=== PATIENT | female | born 1975 | race Caucasian/White ===

== ENCOUNTER 2018-11-04 06:40 | Emergency (ER) | payer BC ==
--- NOTE | 2018-11-04 07:32 | ED ---
Abdominal Pain/Female - HPI Summary HPI Summary: This patient is a 43 year old F presenting to [facility] with a chief complaint of RUQ abd pain since 8 days ago. The patient notes that her pain worsened last night but notes that it lessened [employer] at [facility]. The patient rates the pain 3/10 in severity. Symptoms aggravated by nothing. Symptoms alleviated by nothing. Patient reports multiple episodes of emesis since 1 day ago. - History of Current Complaint Chief Complaint: EDAbdPain Stated Complaint: ABD PAIN Time Seen by Provider: 11/04/18 07:05 Hx Obtained From: Patient Hx Last Menstrual Period: 10/15/12 Onset/Duration: Gradual Onset, Lasting Days - 8 days, Still Present Timing: Constant Severity Initially: Moderate Severity Currently: Mild Pain Intensity: 3 Pain Scale Used: 0-10 Numeric Location: Discrete At: RUQ Radiates: No Aggravating Factor(s): Nothing Alleviating Factor(s): Nothing Associated Signs and Symptoms: Positive: Vomiting Allergies/Adverse Reactions: Allergies Allergy/AdvReac Type Severity Reaction Status Date / Time doxycycline Allergy Mild Vomiting Verified 11/04/18 11:42 PMH/Surg Hx/FS Hx/Imm Hx Endocrine/Hematology History: Reports: Hx Thyroid Disease Denies: Hx Diabetes Cardiovascular History: Denies: Hx Congestive Heart Failure, Hx Hypercholesterolemia, Hx Hypertension GI History: Reports: Other GI Disorders - llq pain - Cancer History Hx Chemotherapy: No Hx Radiation Therapy: Yes - THYROID, 1999 RAD ABLATION - Surgical History Surgery Procedure, Year, and Place: 2 c section, ectopic preg Infectious Disease History: No Infectious Disease History: Denies: Traveled Outside the [place] in Last 30 Days - Family History Known Family History: Negative: Diabetes - Social History Alcohol Use: Occasionally Substance Use Type: Reports: None Smoking Status (MU): Never Smoked Tobacco Review of Systems Negative: Fever Negative: Epistaxis Negative: Cough Positive: Abdominal Pain - RUQ, Vomiting Negative: Headache All Other Systems Reviewed And Are Negative: Yes Physical Exam - Summary Physical Exam Summary: Appearance: The patient is obese in no acute distress and in no acute pain. Skin: The skin is warm and dry and skin color reflects adequate perfusion. HEENT: The head is normocephalic and atraumatic. The pupils are equal and reactive. The conjunctivae are clear and without drainage. Nares are patent and without drainage. Mouth reveals moist mucous membranes and the throat is without erythema and exudate. The external ears are intact. The ear canals are patent and without drainage. The tympanic membranes are intact. Neck: The neck is supple with full range of motion and non-tender. There are no carotid bruits. There is no neck vein distension. Respiratory: Chest is non-tender. Lungs are clear to auscultation and breath sounds are symmetrical and equal. Cardiovascular: Heart is regular rate and rhythm. There is no murmur or rub auscultated. There is no peripheral edema and pulses are symmetrical and equal. Abdomen: The abdomen is soft and non-tender. There are normal bowel sounds heard in all four quadrants and there is no organomegaly palpated. Musculoskeletal: There is no back tenderness noted. Extremities are non-tender with full range of motion. There is good capillary refill. There is no peripheral edema or calf tenderness elicited. Neurological: Patient is alert and oriented to person, place and time. The patient has symmetrical motor strength in all four extremities. Cranial nerves are grossly intact. Deep tendon reflexes are symmetrical and equal in all four extremities. Psychiatric: The patient has an appropriate affect and does not exhibit any anxiety or depression. Triage Information Reviewed: Yes Vital Signs On Initial Exam: Initial Vitals Temp Pulse Resp BP Pulse Ox 97 F 85 20 124/86 97 11/04/18 06:42 11/04/18 06:42 11/04/18 06:42 11/04/18 06:42 11/04/18 06:42 Vital Signs Reviewed: Yes Diagnostics - Vital Signs Vital Signs Temp Pulse Resp BP Pulse Ox 11/04/18 06:42 97 F 85 20 124/86 97 - Laboratory Result Diagrams: 11/04/18 08:03 11/04/18 08:03 Lab Statement: Any lab studies that have been ordered have been reviewed, and results considered in the medical decision making process. - CT CT Abd/Pelvis Summary of CT Findings: IMPRESSION: 1. NO RENAL CALCULI OR HYDRONEPHROSIS. 2. LARGE CYST ARISING FROM THE LEFT OVARY SLIGHTLY INCREASED IN SIZE FROM THE PRIOR STUDY. VERSUS A NEW CYST. RECOMMEND A FOLLOW-UP OUTPATIENT PELVIC ULTRASOUND FOR FURTHER. EVALUATION. Dr. Wise has reviewed this report. - Additional Comments Diagnostic Additional Comments: Liver US Interpreted by radiologist. IMPRESSION: 1. CHOLELITHIASIS WITHOUT EVIDENCE FOR ACUTE CHOLECYSTITIS. 2. FINDINGS SUGGESTIVE OF FATTY INFILTRATION OF THE LIVER. Dr. Wise has reviewed this report. Abdominal Pain Fem Course/Dx - Course Course Of Treatment: Ms. Renee reports that for the last 8 nights she has had epigastric/right upper quadrant pain that lasted several hours and resolved on its own. Last night was the worst episode was accompanied by nausea and vomiting. She came to the emergency department was very busy and she left and went home and said she would come back in the morning. This morning she is feeling improved. She was nontoxic in appearance with stable vital signs on arrival. A gallbladder ultrasound revealed stones and fatty liver but no sign of acute cholecystitis. Labs were obtained and showed no leukocytosis but she did have some mild elevations of her transaminases and her lipase. A CT scan was obtained and was unremarkable. My working diagnosis is that she may have passed a gallstone. I think she will need to have repeat blood work done and a couple of days to make sure that her transaminases and lipase are going down. I don't think her fatty liver is extensive enough to be leading to cirrhotic changes at this point. I recommended that she follow up with her PCP next week for for further evaluation. She was unable to get a timely appointment and therefore referred her to Dr. Mcelroy as she may need to have her gallbladder out. I recommended she return to the emergency department if her pain should return tonight. - Diagnoses Provider Diagnoses: Fatty liver, Biliary colic Discharge - Sign-Out/Discharge Documenting (check all that apply): Patient Departure - discharge home Patient Received Moderate/Deep Sedation with Procedure: No - Discharge Plan Condition: Stable Disposition: HOME Patient Education Materials: Biliary Colic (ED), Non-Alcoholic Fatty Liver Disease (ED) Referrals: Cristopher Javed MD [Primary Care Provider] - 2 Days Additional Instructions: Follow up with Dr. Javed in 2 days. Return to the emergency department if the pain returns or worsens. - Billing Disposition and Condition Condition: STABLE Disposition: Home - Attestation Statements Document Initiated by Scribe: Yes Documenting Scribe: Lyn Hewitt Provider For Whom Scribe is Documenting (Include Credential): Rob Wise MD Scribe Attestation: ILyn, scribed for Rob Wise MD on 11/04/18 at 1504. Scribe Documentation Reviewed: Yes Provider Attestation: The documentation as recorded by the scribe, Lyn Hewitt accurately reflects the service I personally performed and the decisions made by me, Rob Wise MD Status of Lupe Document: Viewed
[2018-11-04 08:16] LABS: ABS Basophils 0 10^3/ul (0-0.2); ABS Eosinophils 0.1 10^3/ul (0-0.6); ABS Lymphocytes 1.6 10^3/ul (1.0-4.8); ABS Monocytes 0.6 10^3/ul (0-0.8); ABS Neutrophils 5.5 10^3/ul (1.5-7.7); ABS Nucleated RBC 0 10^3/ul; Eosinophil % 1.4 %; Hematocrit 37 % (35-47); Hemoglobin 12.6 g/dl (12.0-16.0); Lymphocyte % 20.9 %; Mean Corpuscular HGB Conc 34 g/dl (31-36); Mean Corpuscular Hemoglobin 30 pg (27-31); Mean Corpuscular Volume 89 fL (80-97); Nucleated Red Blood Cells % 0; Platelet Count 284 10^3/ul (150-450); Red Blood Count 4.19 10^6/ul (4.00-5.40); Red Cell Distribution Width 13 % (10.5-15); White Blood Count 7.9 10^3/ul (3.5-10.8)
[2018-11-04 08:33] LABS: Albumin 3.8 g/dL (3.2-5.2); Albumin/Globulin Ratio 1.5 (1-3); BUN/Creatinine Ratio 15.5 (8-20); C Reactive Protein 2.86 mg/L (<8.01); Calcium 9.2 mg/dL (8.6-10.3); EGFR African American 108.2 (>60); EGFR Non-African American 89.4 (>60); Globulin 2.5 g/dL (2-4); Potassium 3.9 mmol/L (3.5-5.0); Total Bilirubin 0.6 mg/dL (0.2-1.0); Total Protein 6.3 g/dL (6.4-8.9)
[2018-11-04 11:42] VITALS: BP 130/89
== END 2018-11-04 11:49 | disposition home or self-care (01) ==
LOC: ED 06:40
DX: K76.0 Fatty (change of) liver, not elsewhere classified (principal); K80.50 Calculus of bile duct without cholangitis or cholecystitis without obstruction; E07.9 Disorder of thyroid, unspecified
CPT/HCPCS: 36415; 74176; 76705; 80053; 83690; 85025; 86140; 99283

== ENCOUNTER → 2018-11-10 07:28 | Day surgery (SDC) | payer BC ==
[~2018-11-10 07:28] MED LIST: Acetaminophen TAB* 325 MG PO PRN; Buffered Lidocaine 1% SYRIN* 1 ML/SYRINGE INTRADERM ONE; Bupivacaine 0.25% W/EPI* 10 ML SDV ONE; Dexamethasone IV* 4 MG/ML 1 ML (4 MG) ONE; DiMENhydriNATE IV* 50 MG/ML VIAL IV PUSH PRN; HYDROcodone/ACETAMIN 5-325 MG* 1 TAB ONE; HYDROcodone/ACETAMIN 5-325 MG* 1 TAB PO ONE; HYDROmorphone INJ1* 1 MG/ML SYRINGE IV PRN; HYDROmorphone INJ1* 1 MG/ML SYRINGE ONE; Ketorolac INJ* 30 MG/ML 1 ML VIAL ONE; Lactated Ringers 1000 ML Bag* 1,000 ML IV SCH; Lidocaine 2% PF * 5 ML VIAL ONE; Metoclopramide IV* 5 MG/ML 2 ML VIAL ONE; Midazolam* 1 MG/ML 2 ML VIAL (2 MG) ONE; Naloxone* 0.4 MG/ML 1 ML VIAL IV PRN; Ondansetron INJ* 2 MG/ML VIAL ONE; Propofol* 10 MG/ML 20 ML BTL ONE; Rocuronium* 10 MG/ML VIAL ONE; Scopolamine 1.5 mg* PATCH ONE; Sugammadex * 200 MG/2 ML VIAL IV PUSH ONE; ceFAZolin 2 GM PREMIX in ORs 2 GM/50 ML BAG IVPB ONE; fentaNYL* 50 MCG/ML 2 ML VIAL (100 MCG VIAL) ONE; oxyCODONE TAB* 5 MG TAB PO PRN
--- NOTE | 2018-11-10 12:12 | OP ---
CC: Cristopher Javed MD * DATE OF OPERATION: 11/10/18 - [facility] DATE OF : 73 SURGEON: Dr. Mcelroy. MUD MIXER OPERATOR: Elisabeth Mccurdy NP. ANESTHESIOLOGIST: Domonique Rutledge DO. ANESTHESIA: General endotracheal anesthesia. PRE-OP DIAGNOSIS: Gallstone pancreatitis. POST-OP DIAGNOSIS: Gallstone, pancreatitis. OPERATIVE PROCEDURE: Laparoscopic cholecystectomy. ESTIMATED BLOOD LOSS: Minimal. IV FLUIDS: Crystalloid. SPECIMENS: Gallbladder. DRAINS: None. COMPLICATIONS: None. COUNTS: The instruments, needle and sponge counts were correct. DESCRIPTION OF PROCEDURE: The patient was brought to the operating room and placed on the table supine. Sequential compression devices were placed on both lower extremities. General anesthesia was administered. She was positioned and padded appropriately. She was prepped and draped in the usual sterile fashion and received appropriate intravenous antibiotics. Local anesthetic was infiltrated into the skin and soft tissue prior to each incision. Entry to the abdomen was made through an infraumbilical vertical incision using open technique. After accessing the peritoneal cavity, carbon dioxide was insufflated to a pressure of 15 mmHg. Under direct visualization, three 5 mm trocars were placed, two in the right upper quadrant, one in the subxiphoid position. The gallbladder was identified. It had no acute inflammatory changes. There were some adhesions, both to the duodenum and omentum that were sharply lysed. The peritoneum investing the gallbladder was then incised using sharp dissection and cautery, dissecting both on the medial and lateral aspects of the gallbladder. The triangle of Calot was developed and a critical view was obtained. The cystic duct and anterior and posterior branches of the cystic artery were each dissected out, doubly clipped, and divided and then the gallbladder was freed from attachments to the liver using the cautery and sharp dissection staying in an avascular plane. Once the gallbladder was freed, it was placed into an endoscopic retrieval bag and retrieved through the umbilical site. Hemostasis was assured. Ports removed under direct visualization. Carbon dioxide was released. The umbilical wound was closed with 0-Vicryl in an interrupted fashion to approximate the fascia. The skin incisions were closed with 4-0 Monocryl in subcuticular fashion. Steri -Strips were applied. The patient tolerated the procedure well, was extubated and transferred to recovery in stable condition. [id number]/[facility] #: [id number] [facility]
[2018-11-10 12:53] VITALS: BP 106/58
== END | disposition home or self-care (01) ==
LOC: OR 07:28
PROVIDERS: ATTEND Surgery
DX: K80.10 Calculus of gallbladder with chronic cholecystitis without obstruction (principal); K85.10 Biliary acute pancreatitis without necrosis or infection; E07.9 Disorder of thyroid, unspecified; Z87.891 Personal history of nicotine dependence
CPT/HCPCS: 81025; 88304; A9270-GY; J0690; J1100; J1170; J1885; J2250; J2405; J2704; J2765; J3010

== ENCOUNTER 2018-12-02 07:00 | Emergency (ER) | payer BC ==
--- NOTE | 2018-12-02 07:17 | UC ---
Respiratory Complaint HPI - HPI Summary HPI Summary: Patient Chief Complaint: COUGH FOR APPROXIMATELY 5 WEEKS Course (aggravating, relieving, current condition, severity): 43-year-old complains of intermittent, spasmodic episodes of coughing. She was seen on November 28 and started on an inhaler and a spacer. She was given 1 dose of prednisone. Over the last 5 days. The cough is increased. The pain is 5/10 with the cough. The discomfort is anterior thorax. There is no pain consistent with cardiac problem. Note is made of an elevated pulse of 101 and a blood pressure of 135/77. The patient is not on any antihypertensive medications. She is afebrile and her pulse ox is 98. MD note, vital signs stable. Nurses Note Reviewed: Pt c/o cold-sx for 3 weeks - chest congestion,. Wheezing , cough. Saw pcp on 11/28 - was given some prednisone and levalbuterol - states ddin't help. Visit History Reviewed. Positive for hypothyroidism. 6 weeks ago approximately. Patient had her gallbladder taken out. She did have pancreatitis before that. She does report 2 episodes of "asthmatic bronchitis" , the last episode in 2007. Medications & Allergies Reviewed. No medications for hypertension. - History of Current Complaint Stated Complaint: COUGH Time Seen by Provider: 12/02/18 07:11 Hx Obtained From: Patient Hx Last Menstrual Period: 10/15/12 - Allergies/Home Medications Allergies/Adverse Reactions: Allergies Allergy/AdvReac Type Severity Reaction Status Date / Time doxycycline Allergy Mild Vomiting Verified 12/02/18 07:11 Home Medications: Home Medications Amoxicillin 1,000 mg PO ONCE 12/02/18 [History Confirmed 12/02/18] Norethindrone (NF) [Mitzy (NF)] 0.35 mg PO DAILY 12/02/18 [History Confirmed 12/02/18] PMH/Surg Hx/FS Hx/Imm Hx - Additional Past Medical History Additional PMH: PMH reviewed. Family History: Positive history of: sleep apnea -Denies hypertension, heart disease, stroke, diabetes, cancer. SOCIAL HISTORY: Employment: endoscopy nurse Family Environment: lives with two children and Habits: non smoker Previously Healthy: Yes - Surgical History Surgical History: Yes Surgery Procedure, Year, and Place: 2 c section,. ectopic preg, 2010, salpingectomy. thyroid ablation - Family History Known Family History: Negative: Diabetes - Social History Alcohol Use: Occasionally Alcohol Amount: 2 drinks 2x per month Substance Use Type: None Smoking Status (MU): Never Smoked Tobacco Amount Used/How Often: [id number] Review of Systems All Other Systems Reviewed And Are Negative: Yes Respiratory: Positive: Shortness Of Breath, Cough Cardiovascular: Positive: Negative Gastrointestinal: Positive: Negative Genitourinary: Positive: Negative Is Patient Immunocompromised?: No - Comments Additional Review of Systems Comments: A 12 point review of systems was completed and was significantly positive for: cough . The remainder of the review was negative except as stated above in the ROS or HPI. Physical Exam - Summary Physical Exam Summary: Appearance: The patient is well-appearing, is in no pain or distress, and is well-nourished. Eyes: Conjunctiva are clear. Pupils are equal and reactive to light and accommodation. Extra ocular muscle movement is intact. ENT: The hearing is grossly normal, the pharynx is normal, and the TMs are normal. There is no muffled or hoarse voice. No stridor. Neck: The neck is supple and there is no lymphadenopathy. Respiratory: The chest is nontender to palpation and without crepitus. EXAMINATION OF THE LUNGS SHOW DIFFUSE RHONCHI AND WHEEZES WITH AN EXTENDED EXPIRATORY PHASE. After a inhalation treatment. Patient is breathing more easily and there are decreased wheezes. Cardiovascular: Heart sounds reveal a regular rate and rhythm. There are no clicks, rubs or murmurs. There are no carotid bruits or thrills. Circulation is grossly intact. Abdomen: The abdomen is soft and nontender. There is no organomegaly. Bowel sounds are present and within normal limits. No point tenderness at McBurneys point. Musculoskeletal: Strength is intact. The patient moves all extremities. Neurological: The patient is alert. Motor and sensory are examination grossly intact. Speech is normal. Psychological: The patient displays age appropriate behavior Skin: Negative for rashes. Triage Information Reviewed: Yes Respiratory Course/Dx - Course Course Of Treatment: 43-year-old complains of intermittent, spasmodic episodes of coughing. She was seen on November 28 and started on an inhaler and a spacer. She was given 1 dose of prednisone. Over the last 5 days. The cough is increased. The pain is 5/10 with the cough. The discomfort is anterior thorax. There is no pain consistent with cardiac problem. Physical examination shows diffuse wheezes and rhonchi. She was given an DuoNeb treatment. Her condition improved. My diagnosis is bronchitis with bronchospasm. She will be started on prednisone, Zithromax and albuterol inhaler and spacer. She also has an inhalation device at home that she will use. She will be followed up if there is any development of chest pain, or increasing shortness of breath. Chest x-ray was negative for pneumonia. - Differential Dx/Diagnosis Differential Diagnosis/HQI/PQRI: Asthma, Bronchitis, CHF, Pulmonary Embolism Provider Diagnosis: Bronchospasm with bronchitis, acute Discharge - Sign-Out/Discharge Documenting (check all that apply): Patient Departure All imaging exams completed and their final reports reviewed: Yes - Discharge Plan Condition: Stable Disposition: HOME Prescriptions: Albuterol HFA INHALER* [Ventolin HFA Inhaler*] 1 - 2 puff INH Q4H #1 mdi MDD 8 PUFFS A DAY Azithromycin TAB* [Zithromax TAB*] 250 mg PO DAILY #6 tab MDD 2 Inhaler, Assist Devices [Aerochamber Mv] 1 mis XX Q6HR #1 mis predniSONE TAB* [Deltasone 20 MG TAB*] 20 mg PO DAILY #6 tab MDD 2 Referrals: Cristopher Javed MD [Primary Care Provider] - Additional Instructions: WE DISCUSSED: PLEASE SEEK CARE AT THE EMERGENCY DEPARTMENT IF SYMPTOMS WORSEN OR IF NEW SYMPTOMS DEVELOP. FOLLOW UP WITH YOUR PRIMARY CARE PHYSICIAN IF CONDITION CONTINUES BEYOND 3 DAYS WITHOUT IMPROVEMENT. We are open from 7 a.m. to 10 p.m. Call us with any questions or concerns. YOUR DIAGNOSIS IS: BRONCHITIS WITH BRONCHOSPASM YOUR PRESCRIPTION RECOMMENDATION IS: ALBUTEROL AND SPACER; ZITHROMAX; PREDNISONE. OTHER INSTRUCTIONS: Hypertension Discharge Instructions: Your blood pressure reading today was 135/77, indicating HYPERTENSION. Follow- up with your primary care provider within 4 weeks for blood pressure check and appropriate recommendations and treatment, as needed. For pain: Ibuprofen (Motrin and other brand names) 400-600mg PLUS acetaminophen (Tylenol and other brand names) 500mg - 1000mg every 8 hours. Maximum is 3 doses a day. If this dosage is required for more than 5 days, you should re-check with your doctor. The combination of these two over-the- counter medications can be more effective than each one taken alone. Please check with the pharmacist if you have questions about your allergies to these medications. - Billing Disposition and Condition Condition: STABLE Disposition: Home
[2018-12-02 07:21] VITALS: BP 135/77
[2018-12-02] MEDS ORDERED: Albuterol/Ipratropium NEB.SOL* Albuterol 2.5 MG/Ipratropium 0.5 MG 3 ML INH ONE (07:32)
[2018-12-02] MEDS ORDERED: Albuterol/Ipratropium NEB.SOL* Albuterol 2.5 MG/Ipratropium 0.5 MG 3 ML ONE (07:35)
== END 2018-12-02 08:42 | disposition home or self-care (01) ==
LOC: UCEAST 07:00
DX: J20.9 Acute bronchitis, unspecified (principal); Z88.1 Allergy status to other antibiotic agents
CPT/HCPCS: 71046; 99212; A9270-GY; G0463

== ENCOUNTER 2024-04-17 05:51 | Observation (INO) ==
[~2024-04-17 05:51] MED LIST changes: -Acetaminophen TAB* 325 MG PO PRN; -Buffered Lidocaine 1% SYRIN* 1 ML/SYRINGE INTRADERM ONE; -Bupivacaine 0.25% W/EPI* 10 ML SDV ONE; -Dexamethasone IV* 4 MG/ML 1 ML (4 MG) ONE; -DiMENhydriNATE IV* 50 MG/ML VIAL IV PUSH PRN; -HYDROcodone/ACETAMIN 5-325 MG* 1 TAB ONE; -HYDROcodone/ACETAMIN 5-325 MG* 1 TAB PO ONE; -HYDROmorphone INJ1* 1 MG/ML SYRINGE IV PRN; -HYDROmorphone INJ1* 1 MG/ML SYRINGE ONE; -Ketorolac INJ* 30 MG/ML 1 ML VIAL ONE; -Lactated Ringers 1000 ML Bag* 1,000 ML IV SCH; +Lactated Ringers 1000 ml BAG 1,000 ML IV SCH; -Lidocaine 2% PF * 5 ML VIAL ONE; +Metoclopramide 5 MG/ML VIAL (10 mg) IV PRN; -Metoclopramide IV* 5 MG/ML 2 ML VIAL ONE; -Midazolam* 1 MG/ML 2 ML VIAL (2 MG) ONE; +NS 0.45% 1000 ml BAG 1,000 ML IV SCH; +Naloxone 0.4 mg VIAL 0.4 mg/ml 1 ml VIAL IV PRN; -Naloxone* 0.4 MG/ML 1 ML VIAL IV PRN; +Ondansetron 4 mg VIAL 2 MG/ML 2 ml VIAL IV PRN; -Ondansetron INJ* 2 MG/ML VIAL ONE; -Propofol* 10 MG/ML 20 ML BTL ONE; -Rocuronium* 10 MG/ML VIAL ONE; -Scopolamine 1.5 mg* PATCH ONE; -Sugammadex * 200 MG/2 ML VIAL IV PUSH ONE; -ceFAZolin 2 GM PREMIX in ORs 2 GM/50 ML BAG IVPB ONE; +fentaNYL 100 mcg/2 ml 50 MCG/ML VIAL IV PRN; -fentaNYL* 50 MCG/ML 2 ML VIAL (100 MCG VIAL) ONE; -oxyCODONE TAB* 5 MG TAB PO PRN
[2024-04-17] MEDS ORDERED: Tranexamic Acid 1 GM/100ML BAG 2,000 MG/200 ML BAG IV ONE (06:55)
[2024-04-17] MEDS ORDERED: ceFAZolin 2 GM in NS PREMIX 2 GM/100 ML BAG IVPB ONE (06:56)
[2024-04-17] MEDS ORDERED: Buffered Lidocaine 1% SYRIN 1 ml ONE (06:56)
[2024-04-17 07:05] LABS: Rapid COVID-19 Molecular Undetected (Undetected)
[2024-04-17] MEDS ORDERED: ROPIVACAINE 5 MG/ML 30 ML BTL (0.5%) ONE ×2 (07:12→07:23)
[2024-04-17] MEDS ORDERED: Lidocaine 2% PF 5 ML VIAL ONE ×2 (07:18→07:23)
[2024-04-17] MEDS ORDERED: Phenylephrine IV 10 MG/ML 1 ml VIAL ONE (07:18)
[2024-04-17] MEDS ORDERED: Midazolam 2 mg/2 ml VIAL 1 mg/ml 2 ml VIAL (2 mg) ONE ×2 (07:23→07:46)
[2024-04-17] MEDS ORDERED: fentaNYL 100 mcg/2 ml 50 MCG/ML VIAL ONE (07:23)
[2024-04-17] MEDS ORDERED: Dexamethasone IV 4 MG/ML VIAL 1 ml VIAL ONE (08:16)
[2024-04-17] MEDS ORDERED: Ondansetron 4 mg VIAL 2 MG/ML 2 ml VIAL ONE (08:16)
[2024-04-17] MEDS ORDERED: Propofol 10 MG/ML 20 ML BTL ONE ×2 (08:40→09:36)
[2024-04-17] MEDS ORDERED: Calcium Carb (TUMS) 500 mg CHEW TAB PO PRN (10:17)
[2024-04-17] MEDS ORDERED: Lactulose 30 ml UDC PO PRN (10:17)
[2024-04-17] MEDS ORDERED: Magnesium Hydroxide LIQ 30 ML UDC PO PRN (10:17)
[2024-04-17] MEDS: Lactated Ringers 1000 ml BAG 1,000 ML IV SCH (12:08)
[2024-04-17] MEDS: Ondansetron 4 mg VIAL 2 MG/ML 2 ml VIAL IV PRN ×2 (13:51→18:52)
[2024-04-17] MEDS: Scopolamine 1 mg/72hr PATCH TRANSDERM ONE (14:40)
[2024-04-17] MEDS: Acetaminophen IV 1 GM/100ML 1,000 MG/100 ML BAG IV ONE (14:40)
[2024-04-17] MEDS: Buffered Lidocaine 1% SYRIN 1 ml INTRADERM ONE (14:40)
[2024-04-17] MEDS: ceFAZolin 2 GM in NS PREMIX 2 GM/100 ML BAG IVPB SCH (15:50)
[2024-04-17] MEDS: Morphine 2 MG/ML SYRINGE IV PRN (16:53)
[2024-04-17] MEDS ORDERED: Albuterol HFA INHALER 8 gm MDI INH PRN (17:00)
[2024-04-17] MEDS: Magnesium Hydroxide LIQ 30 ML UDC PO SCH (22:50)
[2024-04-18 06:18] LABS: Hematocrit 31.8 % (35-45); Hemoglobin 10.4 g/dL (11.5-14.3); Platelet Count 284 10^3/uL (150-450)
[2024-04-18 07:17] LABS: Calcium 8.9 mg/dL (8.6-10.3); Creatinine, Serum 0.65 mg/dL (0.51-0.95); Potassium 4.4 mmol/L (3.5-5.0); eGFR CKD-EPI 107.2 (>60)
[2024-04-18] MEDS: Vitamin THERAPEUTIC TAB PO SCH (08:43)
[2024-04-18 10:01] VITALS: BP 128/85
[2024-04-18] MEDS: Ondansetron ODT 4 mg TAB 4 MG TAB PO PRN (12:35)
== END 2024-04-18 12:50 | disposition home or self-care (01) ==
LOC: OR 05:51 → SSU 05:51
PROVIDERS: ADMIT Orthopaedic Surgery Adult Reconstructive Orthopaedic Surgery; ATTEND Orthopaedic Surgery Adult Reconstructive Orthopaedic Surgery

== ENCOUNTER 2024-09-11 12:22 | Observation (INO) ==
[~2024-09-11 12:22] MED LIST changes: +Dexamethasone IV 4 MG/ML VIAL 1 ml VIAL ONE; +HYDROmorphone 1 MG/1 ML SYRINGE IV PRN; -Lactated Ringers 1000 ml BAG 1,000 ML IV SCH; -Metoclopramide 5 MG/ML VIAL (10 mg) IV PRN; -NS 0.45% 1000 ml BAG 1,000 ML IV SCH; -Ondansetron 4 mg VIAL 2 MG/ML 2 ml VIAL IV PRN; +Ondansetron 4 mg VIAL 2 MG/ML 2 ml VIAL ONE; +Propofol 10 MG/ML 20 ML BTL ONE
[2024-09-11] MEDS ORDERED: ceFAZolin 2 GM PREMIX 2 GM/50 ML BAG ONE (13:06)
[2024-09-11] MEDS ORDERED: Tranexamic Acid 1 GM/100ML BAG 2,000 MG/200 ML BAG IV ONE (13:06)
[2024-09-11 13:40] LABS: Rapid COVID-19 Molecular Undetected (Undetected)
[2024-09-11] MEDS ORDERED: Midazolam 5 mg/5 ml VIAL 1 mg/ml 5 ml VIAL (5 mg) ONE (13:42)
[2024-09-11] MEDS ORDERED: Bupivacaine 0.25% SDV 30 ML ONE (13:43)
[2024-09-11] MEDS ORDERED: fentaNYL 100 mcg/2 ml 50 MCG/ML VIAL ONE (13:43)
[2024-09-11] MEDS ORDERED: Dexamethasone IV 4 MG/ML VIAL 1 ml VIAL ONE (13:43)
[2024-09-11] MEDS ORDERED: ROPIVACAINE 5 MG/ML 30 ML BTL (0.5%) ONE (14:12)
[2024-09-11] MEDS ORDERED: Calcium Carb (TUMS) 500 mg CHEW TAB PO PRN (14:26)
[2024-09-11] MEDS ORDERED: Lactulose 30 ml UDC PO PRN (14:26)
[2024-09-11] MEDS ORDERED: Ondansetron ODT 4 mg TAB 4 MG TAB PO PRN (14:26)
[2024-09-11] MEDS ORDERED: Magnesium Hydroxide LIQ 30 ML UDC PO PRN (14:26)
[2024-09-11] MEDS ORDERED: KETAMINE HCL 10 MG/ML 20 ml VIAL (200 MG) ONE (14:30)
[2024-09-11] MEDS ORDERED: Propofol 10 MG/ML 20 ML BTL ONE (15:44)
[2024-09-11] MEDS ORDERED: Ondansetron 4 mg VIAL 2 MG/ML 2 ml VIAL ONE (17:35)
[2024-09-11] MEDS: Ondansetron 4 mg VIAL 2 MG/ML 2 ml VIAL IV PRN (17:36)
[2024-09-11] MEDS ORDERED: Scopolamine 1 mg/72hr PATCH ONE (17:48)
[2024-09-11] MEDS: Scopolamine 1 mg/72hr PATCH TRANSDERM ONE (17:49)
[2024-09-11] MEDS: Lactated Ringers 1000 ml BAG 1,000 ML IV SCH ×2 (18:46→19:36)
[2024-09-11] MEDS ORDERED: Albuterol HFA INHALER 8 gm MDI INH PRN (19:00)
[2024-09-11] MEDS: Buffered Lidocaine 1% SYRIN 1 ml INTRADERM ONE (19:53)
[2024-09-11] MEDS: Acetaminophen IV 1 GM/100ML 1,000 MG/100 ML BAG IV ONE (19:53)
[2024-09-11] MEDS: Morphine 2 MG/ML SYRINGE IV PRN (20:39)
[2024-09-11] MEDS: Magnesium Hydroxide LIQ 30 ML UDC PO SCH (21:01)
[2024-09-11] MEDS: ceFAZolin 2 GM PREMIX 2 GM/50 ML BAG IV SCH (21:36)
[2024-09-12] MEDS: Ondansetron 4 mg VIAL 2 MG/ML 2 ml VIAL IV PRN (00:11)
[2024-09-12 06:00] LABS: Hemoglobin 9.7 g/dL (11.5-14.3); Mean Platelet Volume 9.2 fL (7.5-11.2); Platelet Count 321 10^3/uL (150-450)
[2024-09-12 06:26] LABS: Calcium 8.6 mg/dL (8.6-10.3); Creatinine, Serum 0.73 mg/dL (0.51-0.95); Potassium 4.7 mmol/L (3.5-5.0); eGFR CKD-EPI 100.1 (>60)
[2024-09-12] MEDS: Vitamin THERAPEUTIC TAB PO SCH (08:38)
[2024-09-12 14:32] VITALS: BP 110/64
== END 2024-09-12 15:20 | disposition home or self-care (01) ==
LOC: SSU 12:22 → OR 12:22
PROVIDERS: ADMIT Orthopaedic Surgery Adult Reconstructive Orthopaedic Surgery; ATTEND Orthopaedic Surgery Adult Reconstructive Orthopaedic Surgery